=== PATIENT | male | born 2000 | race Caucasian/White ===

== ENCOUNTER 2019-11-27 18:24 | Emergency (ER) | payer BC, SELFPAY ==
[2019-11-27 18:26] VITALS: BP 141/77; PULSE 105; RESP 18; TEMP 36; O2SAT 97; BMI 30.6
--- NOTE | 2019-11-27 19:11 | RAD_ITS ---
STUDY: X-RAY CHEST REASON FOR EXAM: Male, 19 years old. NAUSEA, VOMITING, FEVER, COUGH TECHNIQUE: Single frontal view of the chest. COMPARISON: None. FINDINGS: The lungs are clear and expanded. There is no demonstrated pleural abnormality. Normal size heart. Normal mediastinum and padma. Normal visualized pulmonary arteries. Normal visualized aortic arch and descending thoracic aorta. Normal visualized thoracic spine. Normal visualized ribs, clavicles, and shoulders. There is no demonstrated abnormality of the visualized soft tissue structures of the upper abdomen. RAD/Chest 1 View (Portable) IMPRESSION: No acute cardiopulmonary process. Electronically Signed: Sharmila Leyva MD at 20:48 EDT Tel , Service support ,
--- NOTE | 2019-11-27 19:12 | ED.DCSUM_ITS ---
History of Present Illness Chief Complaint: General Illness Informant: Patient, Friend Narrative: Patient presents the emergency department with vomiting, diarrhea, cough, fever, headache. Symptoms started Wednesday morning. He states that Wednesday of last week he had a COVID test through his [employer] that was negative. On him and his friend ate food that they cooked themselves and everybody had a bit of a stomachache. Wednesday had a temperature of 100.2 and felt ill. Wednesday vo miting and diarrhea temperature of 102. [place] a little bit better on Wednesday today symptoms returned except for the fever. He describes the diarrhea as brown and watery. He notes generalized myalgias and fatigue. Past Medical History - Allergies and Home Meds Allergies/Adverse Reactions: Allergies Penicillins Allergy (Verified 11/27/19 18:25) PT UNSURE OF REACTION Primary Care Physician: [facility] Doctor,Out of [NON-STAFF] - Smoking Status: Unknown if ever smoked Review of Systems General: Reports: Chills, Fever, Malaise. Denies: Sweats Eyes: Denies: Visual changes - bilaterally, Diplopia ENT: Denies: Rhinorrhea, Sore throat Cardiovascular: Denies: Chest pain, Palpitations Respiratory: Reports: Dyspnea, Cough. Denies: Dyspnea on exertion Gastrointestinal: Reports: Nausea, Vomiting, Diarrhea. Denies: Abdominal pain, Melena, Hematochezia Genitourinary: Denies: Dysuria, Hematuria, Frequency Musculoskeletal: Reports: Myalgias. Denies: Back pain, Extremity Pain Skin: Denies: Rash, Wounds Neurological: Reports: Headache. Denies: Weakness, Numbness Physical Exam Vital Signs/Narrative: Vital Signs Temp Pulse Resp BP Pulse Ox 11/27/19 18:26 96.8 F L 105 H 18 141/77 H 97 Inital Vital Signs reviewed: Yes General: Well nourished, Well developed, No Acute Distress Head: Normocephalic, Atraumatic Eyes: Perrl, EOMI ENT: Moist mucous membranes, No rhinorrhea Neck: Supple, Nontender Cardiovascular: Regular rate, Regular rhythm, No murmurs, - - Less than 2-second capillary refill of his digits. Respiratory: No distress, CTA bilaterally, Chest nontender Abdomen: Soft, Nontender, Nondistended, Normal bowel sounds Back: Nontender, Normal Inspection Extremities: Nontender, No edema Skin: Normal color, No rash Neurological: Alert, Oriented x3, Cranial nerves II-XII grossly intact, Normal Strength, Normal Sensation Psychological: Normal affect, Normal Mood Diagnostic/Tx/Re-eval - Medical Decision Making She received a liter of IV fluids and Zofran. Chest x-ray is negative. Clinically appears well-hydrated. Was swabbed for COVID. ED Disposition - Plan for ED Patient: Disposition: Home or Assisted Living Diagnosis: Gastroenteritis Instructions: ED Viral Gastroenteritis Prescriptions: Ondansetron [Zofran Odt] 4 mg PO Q6H PRN PRN #20 tab PRN Reason: Nausea Prescription Printed Referrals: [facility] Doctor,Out of [NON-STAFF] - As Needed Additional Instructions: Imodium as needed for diarrhea Try to drink plenty of fluids to stay hydrated Advance diet slowly Your COVID-19 test should be back in several days.
[2019-11-27 19:49] VITALS: BP 137/79; RESP 18
[2019-11-27] MEDS: 0.9% Normal Saline 1,000 ML 1000 ML IV (19:56)
[2019-11-27] MEDS: Ondansetron 4 MG/2 ML Vial IV (19:56)
[2019-11-27] MEDS: Ketorolac 30 MG/ML Syringe IV (19:56)
[2019-11-27 20:54] VITALS: BP 125/70; PULSE 88; RESP 18; TEMP 37.7; O2SAT 95
== END 2019-11-27 21:15 | disposition home or self-care (01) ==
PROVIDERS: Emergency Provider Emergency Medicine
DX: K52.9 Noninfective gastroenteritis and colitis, unspecified (principal); R05 Cough; R50.9 Fever, unspecified; R51 Headache
CPT/HCPCS: 71045; 87635; 96361; 96374; 96375; 99284; C9803; J7030; A4216; J2405; U0003